=== PATIENT | male | born 1965 | race Caucasian/White ===

== ENCOUNTER 2020-01-25 10:54 | Emergency (ER) | payer BC, SELFPAY ==
[2020-01-25 10:56] VITALS: BP 184/124; PULSE 120; RESP 18; TEMP 37.3; O2SAT 96; BMI 33.5
--- NOTE | 2020-01-25 11:47 | [facility].EDGENADL ---
ED Disposition Clinical Impression: Foreign body (FB) in soft tissue, [place] injury to finger, Laceration Disposition: Home, Self-Care Condition on Discharge: Good Instructions: DI for Skin Abscess Additional Instructions: Please slate picker your prescription. I am prescribing you prophylactic antibiotics. Prescriptions: Sulfamethoxazole/Trimethoprim [Bactrim DS tablet] 1 each PO BID 7 Days #14 tab Transmission Status: Pending to [id number] Referrals: Kim Turner MD [Primary Care Provider] - - Critical Care Critical Care Time: No Attestation: On 01/25/20, the high probability of a clinically significant, sudden or life threatening deterioration of the following system(s) required my full and direct attention, intervention and personal management. The time I documented below is in addition to time spent performing reported procedures but includes the following listed in this critical care notation. Medical Decision Making - Medical Records Medical records reviewed: Yes: I reviewed the patient's medical records. - [place]ong Inquiry Pt receiving controlled substance: No Vital Signs: 01/25/20 10:56 Temperature 99.2 F Temperature Source Oral Pulse Rate [Radial] 120 H Respiratory Rate 18 Blood Pressure [Right Arm] 184/124 H Blood Pressure Mean [Right Arm] 144 Blood Pressure Source [Right Arm] Automatic Cuff Blood Pressure Position [Right Arm] Sitting 02 Sat by Pulse Oximetry 96 Oxygen Delivery Method Room Air - Lab Data Lab results reviewed: Yes: I reviewed the patient's lab results. Orders (Tests/Meds): ORDERS Category Date Time Status Hand XR left 2 views [XR hand LT 2V] Stat Exams 01/25/20 11:38 Ordered Medical Decision Narrative: They consent to the procedure having removal of his fishhook. General Adult HPI - General Chief complaint: Skin/Abscess/Foreign Body Stated complaint: left hand index finger fishing hook AO [id number] 1 Time Seen by Provider: 01/25/20 11:47 Mode of Arrival: Ambulatory Source of Information: Patient Limitations: No Limitations Description of Symptoms (Recalled from ER Triage Doc. by RN): Fishing hook in left index finger - History of Present Illness HPI narrative: 54-year-old gentleman presents with a fishhook stuck in his left index finger. He stated he was out fishing earlier this morning and when he cast his line the hook got stuck in his finger. He does have a large hook in his hand and the bull is almost penetrating through the anterior surface just posterior to the lower hanging on the other side. Patient does not complain of any pain. Patient denies any recent illness. Patient also denies any tetanus shot recently. - Related Data Previous Rx's Medication Instructions Recorded Sulfamethoxazole/Trimethoprim 1 each PO BID 7 Days #14 tab 01/25/20 [Bactrim DS tablet] Allergies Allergy/AdvReac Type Severity Reaction Status Date / Time No Known Allergies Allergy Verified 01/25/20 11:08 [facility] History - Hepatitis A Screen Drug use history?: No High risk sexual behaviors?: No History of sexually transmitted infection?: No Currently employed?: No Childcare worker?: No Do you have indoor plumbing?: Yes Do you have electricity?: Yes Attestation statement:: This patient has been screened for Hepatitis A risk factors. I have reviewed the patient's past medical history: Yes - Social History Educational Level: Completed High School Alcohol Intake: never Occupational Status: other ROS Obtained: Yes All systems reviewed & no additional complaints - Constitutional Constitutional: Reports system reviewed and no additional complaints, except as docu - Eyes Eyes: Reports system reviewed and no additional complaints, except as docu - ENT Ears, Nose, Mouth, and Throat: Reports system reviewed and no additional complaints, except as docu - Cardiovascular Cardiovascular: Reports system reviewed and no additional complaint
[2020-01-25 12:13] VITALS: BP 145/85; PULSE 85; RESP 20; TEMP 36.8; O2SAT 98
== END 2020-01-25 12:14 | disposition home or self-care (01) ==
PROVIDERS: Emergency Provider Family Medicine; PCP Family Medicine
DX: S61.221A Laceration with foreign body of left index finger without damage to nail, initial encounter (principal); W22.8XXA Striking against or struck by other objects, initial encounter; Y92.89 Other specified places as the place of occurrence of the external cause; Z23 Encounter for immunization
CPT/HCPCS: 10121; 90471; 90715; 99281; 99282

== ENCOUNTER → 2020-09-01 12:25 | Outpatient (CLI) | payer BC, SELFPAY ==
[2020-09-03 15:08] LABS: Covid-19 Nasal PCR Sendout Lex Positive
== END ==
PROVIDERS: PCP Family Medicine; Visit Provider Family Medicine
DX: Z20.828 Contact with and (suspected) exposure to other viral communicable diseases (principal); U07.1 COVID-19
CPT/HCPCS: U0004